=== PATIENT | female | born 1940 | race Caucasian/White ===

== ENCOUNTER 2020-12-25 09:30 | Inpatient (IN) | payer OTHER ==
[~2020-12-25] VITALS: Ht 152.4 cm; Wt 49.9 kg
--- NOTE | 2020-12-25 09:42 | NUR ---
TO ER BED 4, [id number], PER EMS PT WAS DIFFICULT TO AROUSE THIS MORNING. 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
--- NOTE | 2020-12-25 10:03 | NUR ---
INSULATION WORKER AT BEDSIDE
--- NOTE | 2020-12-25 10:21 | NUR ---
TAKEN TO CT
[2020-12-25] MEDS ORDERED: NA P133E RC (10:25)
[2020-12-25] MEDS ORDERED: ASCO-352 PO (10:25)
[2020-12-25] MEDS ORDERED: ASPI-1420 PO (10:25)
[2020-12-25] MEDS ORDERED: MEMA10TA PO (10:25)
[2020-12-25] MEDS ORDERED: MULT-447 PO (10:25)
[2020-12-25] MEDS ORDERED: BISA10SU11 RC (10:25)
[2020-12-25] MEDS ORDERED: ACET-2605 PO (10:25)
[2020-12-25] MEDS ORDERED: ATOR10TA PO (10:25)
[2020-12-25] MEDS ORDERED: MAGN400O6 PO (10:25)
[2020-12-25] MEDS ORDERED: SENN-261 PO (10:25)
[2020-12-25] MEDS ORDERED: FLUO10CA29 PO (10:25)
[2020-12-25] MEDS ORDERED: BLOO-668 IN (10:25)
[2020-12-25] MEDS ORDERED: PANT40TA2 PO (10:25)
[2020-12-25] MEDS ORDERED: FERR325T23 PO (10:25)
[2020-12-25] MEDS ORDERED: ZINC220C6 PO (10:25)
[2020-12-25] MEDS ORDERED: ACET-868 PO (10:25)
[2020-12-25 10:52] LABS: BASOPHILS # (AUTO) 0.1 K/uL (0.0-0.2); BASOPHILS % (AUTO) 0.4 % (0.0-2.0); EOSINOPHILS % (AUTO) 2.5 % (0.0-6.0); HEMATOCRIT 27 % (33-45); HEMOGLOBIN 8.9 g/dL (11.5-14.8); LYMPHOCYTES # (AUTO) 2.6 K/uL (0.8-4.8); LYMPHOCYTES % (AUTO) 15.3 % (20.0-44.0); MEAN CORPUSCULAR HGB CONC 33 g/dl (31.0-36.0); MEAN CORPUSCULAR VOLUME 90 fL (82-100); MONOCYTES # (AUTO) 1.5 K/uL (0.1-1.30); MONOCYTES % (AUTO) 8.7 % (2.0-12.0); NEUTROPHILS # (AUTO) 12.6 K/uL (1.8-8.9); NEUTROPHILS % (AUTO) 73.1 % (43.0-81.0); PLATELET COUNT (AUTO) 546 K/uL (150-450); RED BLOOD CELL COUNT(AUTO) 3.01 MIL/uL (4.0-5.2); WHITE BLOOD COUNT (AUTO) 17.2 K/uL (4.3-11.0)
[2020-12-25 11:06] LABS: CALCIUM, SERUM 8.1 mg/dL (8.5-10.1); CARBON DIOXIDE 32 mmol/L (21-32); CHLORIDE 106 mmol/L (98-107); CREATININE 0.8 mg/dL (0.6-1.3); GLUCOSE 72 mg/dL (74-106); POTASSIUM 3.9 mmol/L (3.5-5.1); SODIUM SERUM 142 mmol/L (136-145); UREA NITROGEN, BLOOD 13 mg/dL (7-18)
[2020-12-25 11:11] LABS: ALANINE AMINOTRANSFERASE 67 U/L (12-78); ALBUMIN 1.9 g/dL (3.4-5.0); ALCOHOL, BLOOD < 3 mg/dL (0-0); ALKALINE PHOSPHATASE 145 U/L (46-116); ASPARTATE AMINOTRANSFERASE 50 U/L (15-37); BILIRUBIN,DIRECT 0.3 mg/dL (0.0-0.2); BILIRUBIN,TOTAL 0.7 mg/dL (0.2-1.0); TOTAL PROTEIN, SERUM 5.9 g/dL (6.4-8.2)
[2020-12-25] MEDS ORDERED: PIPERACILLIN /TAZOBACTAM 3.375 G in IV D5W 50 ML IV ONE (11:30)
[2020-12-25] MEDS ORDERED: VANCOMYCIN 1 GM in IV D5W 250 ML IV ONE (11:30)
[2020-12-25 11:33] LABS: BILIRUBIN,URINE Negative (NEGATIVE); COLOR,URINE YELLOW (YELLOW); LEUKOCYTE ESTERASE ,URINE Negative (NEGATIVE); NITRITE, URINE Negative (NEGATIVE); PROTEIN,URINE Negative (NEGATIVE); UGLUCOSE Negative (NEGATIVE); UROBILINOGEN,URINE 0.2 EU/dL (0.2)
[2020-12-25 11:33] LABS: ACETAMINOPHEN < 2 ug/ml (10-30)
[2020-12-25 11:44] LABS: BACTERIA,URINE None seen /HPF (None Seen); SQUAMOUS EPITHELIAL CELL,UR Rare /HPF (None Seen); WBC,URINE NONE SEEN /HPF (0-3)
--- NOTE | 2020-12-25 11:52 | NUR ---
CHEYANNE ZHANG CM
--- NOTE | 2020-12-25 12:04 | NUR ---
COVID SWAB DONE AND SENT TO LAB
--- NOTE | 2020-12-25 12:15 | NUR ---
RECEIVED A CALL FROM CHEYANNE FROM [facility]. WANTING CLINICAL INFORMATION, WILL HAVE THE CALL BACK FOR PEER TO PEER.
[2020-12-25 12:59] LABS: SERUM AMMONIA 18 umol/L (11-32)
[2020-12-25 13:11] LABS: THYROID STIMULATING HORMONE 3.351 uIU/mL (0.358-3.74)
--- NOTE | 2020-12-25 13:25 | NUR ---
CALLED TO FOLLOW UP WITH CHEYANNE TRAN FOR [facility]. THERE IS A CONFUSION WITH THEIR HOSPITALIST GROUP OF ADMISSION. NO DOCTOR ABLE TO ACCOMODATE AT THIS TIME. CHEYANNE STATED "IF YOU HAVE TO ADMIT DUE TO TIME, THERE IS NOTHING WE CAN DO". INITIAL CONTACT TIME WITH [facility] WAS 1149.
--- NOTE | 2020-12-25 13:28 | NUR ---
CALLED NURSING SUP FOR TELE BED.
--- NOTE | 2020-12-25 14:30 | NUR ---
dr. pelayo spoke to dr. mtz and gave auth for patient to stay
--- NOTE | 2020-12-25 15:09 | NUR ---
CHEYANNE TRAN MADE AWARE AND GAVE VERBAL AUTH FOR PATIENT TO STAY
--- NOTE | 2020-12-25 17:17 | NUR ---
TAKEN TO CT
[2020-12-25] MEDS ORDERED: MAGNESIUM HYDROXIDE 30 ML UDC PO PRN (17:30)
[2020-12-25] MEDS ORDERED: OLANZAPINE 10 MG VIAL IM PRN (17:30)
[2020-12-25] MEDS ORDERED: ACETAMINOPHEN 325 MG TABLET PO PRN (17:30)
[2020-12-25] MEDS ORDERED: DEXTROSE 50%-WATER 50 ML DISP.SYRIN IV PRN (17:30)
[2020-12-25] MEDS ORDERED: NA PHOS,M-B/NA PHOS,DI-BA 1 EA ENEMA RC PRN (17:30)
[2020-12-25] MEDS: BLOOD SUGAR DIAGNOSTIC 1 EACH STRIP VI SCH ×2 (17:30→22:00)
[2020-12-25] MEDS ORDERED: BISACODYL SUPP (10 MG) 10 MG/SUPP.RECT SUPP.RECT RC PRN (17:30)
--- NOTE | 2020-12-25 17:50 | NUR ---
NURSING SUP GAVE TELE BED 116-2.
--- NOTE | 2020-12-25 19:05 | NUR ---
RN NOTES RECEIVED PT FROM ER VIA [facility] ACCOMPANIED BY 2 ER STAFF AND TRANSFERRED TO BED VIA 2 PERSON ASSIST. PT IS A/OX1; ON ROOM AIR WITH RESPIRATIONS EVEN AND UNLABORED. COMPREHENSIVE PHYSICAL ASSESSMENT AND PATIENT CARE DONE. CALL LIGHT WITHIN REACH, SAFETY MEASURES AND ISOLATION PRECAUTION IN PLACE, WILL CONTINUE MONITOR AND ASSESS THROUGHOUT THE SHIFT. WILL CARRY OUT MD ORDERS ACCORDINGLY. TENNIS BALL COVERER HAND MADE AWARE.
[2020-12-25] MEDS: PIPERACILLIN /TAZOBACTAM 3.375 G in IV D5W 50 ML IV SCH ×2 (19:34→23:39)
[2020-12-25] MEDS: INSULIN REGULAR, HUMAN 100 UNIT/ML 3 ML VIAL SQ PRN (19:41)
--- NOTE | 2020-12-25 19:41 | NUR ---
RN NOTES ACCU CHECK DONE 204; DELAYED FROM SCHEDULE (1730) PT JUST GOT ADMITTED TO [facility]; PT REFUSED INSULIN AT THIS TIME. ANOTHER SCHEUDLE ACCU CHECK BY 2200; WILL RECHECK SCHEDULED.MOBILE MARKETING SPECIALIST MADE AWARE.
[2020-12-25 20:00] VITALS: BP 124/56
[2020-12-25] MEDS: SOD FERRIC GLUC 125 MG in IV NS 0.9% 100 ML IV SCH (20:16)
[2020-12-25] MEDS: SENNOSIDES 8.6 MG TABLET PO SCH (22:00)
[2020-12-25] MEDS: ATORVASTATIN 10 MG TABLET PO SCH (22:00)
--- NOTE | 2020-12-25 22:16 | NUR ---
RN NOTES SCHEDULED MEDICATION : LIPITOR 10MG AND SENOKOT 8.6MG NOT GIVEN PT IS STILL ALTERED AND LETHARGIC. PRIVACY SPECIALIST AND DR JONES MADE AWARE. WILL CONTINUE TO MONITOR AND ASSESS THROUGHOUT THE SHIFT.
[2020-12-25] MEDS: *INSULIN REGULAR(HUMULIN R)HUM 100 UNIT/ML VIAL SQ PRN (23:38)
[2020-12-26] VITALS: BP 113/77
--- NOTE | 2020-12-26 | NUR ---
RN NOTES PATIENT REMAINED TO BE IN NO SIGNS OF ACUTE RESPIRATORY DISTRESS , VITAL SIGNS WNL AT THIS TIME. MACHINIST APPRENTICE MADE AWARE. WILL CONTINUE TO MONITOR AND REASSESS FOR ANY CHANGES THROUGHOUT THE SHIFT.
[2020-12-26 04:00] VITALS: BP 124/41
--- NOTE | 2020-12-26 04:00 | NUR ---
RN NOTES NO NOTED CHANGES IN PATIENT CONDITION AT THIS TIME; PATIENT VITALS STABLE, NO SIGNS OF ACUTE RESPIRATORY DISTRESS. AM PATIENT CARE RENDERED. SKOOG MACHINE OPERATOR MADE AWARE. WILL CONTINUE TO MONITOR AND REASSESS FOR ANY CHANGES THROUGHOUT THE SHIFT.
[2020-12-26] MEDS: PIPERACILLIN /TAZOBACTAM 3.375 G in IV D5W 50 ML IV SCH ×4 (05:03→23:54)
--- NOTE | 2020-12-26 06:35 | NUR ---
RN CLOSING NOTE: PATIENT REMAINS IN ROOM IN NO SIGNS OF RESPIRATORY DISTRESS, PATIENT STILL ON ROOM AIR;TOLERATING WELL SATURATING @ >95% SP02. SAFETY MEASURES IMPLEMENTED, BED IN LOWEST POSITION, LOCKED, SIDE RAILS UP, CALL LIGHT WITHIN REACH. ALL NEEDS AND ORDERS ADDRESSED DURING THE SHIFT. IV ACCESS MAINTAINED INTACT, SECURED AND FLUSHING WELL. ALL DUE MEDS GIVEN ORDERED & SCHEDULED ; PATIENT TOLERATED WELL. PATIENT KEPT CLEAN AND COMFORTABLE WITHIN THE SHIFT. PATIENT ENDORSED TO INCOMING SHIFT RN WITH STABLE VITAL SIGN AND FOR CONTINUITY OF CARE.
[2020-12-26 07:04] LABS: BASOPHILS # (AUTO) 0.1 K/uL (0.0-0.2); BASOPHILS % (AUTO) 0.6 % (0.0-2.0); EOSINOPHILS % (AUTO) 3.5 % (0.0-6.0); HEMATOCRIT 26 % (33-45); HEMOGLOBIN 8.7 g/dL (11.5-14.8); LYMPHOCYTES # (AUTO) 1.9 K/uL (0.8-4.8); MEAN CORPUSCULAR HGB CONC 34 g/dl (31.0-36.0); MEAN CORPUSCULAR VOLUME 90 fL (82-100); MONOCYTES # (AUTO) 1.1 K/uL (0.1-1.30); NEUTROPHILS # (AUTO) 10.2 K/uL (1.8-8.9); NEUTROPHILS % (AUTO) 73.9 % (43.0-81.0); PLATELET COUNT (AUTO) 594 K/uL (150-450); RED BLOOD CELL COUNT(AUTO) 2.88 MIL/uL (4.0-5.2); WHITE BLOOD COUNT (AUTO) 13.8 K/uL (4.3-11.0)
[2020-12-26 07:20] LABS: CALCIUM, SERUM 7.8 mg/dL (8.5-10.1); CREATININE 0.8 mg/dL (0.6-1.3); POTASSIUM 3.8 mmol/L (3.5-5.1)
--- NOTE | 2020-12-26 07:55 | NUR ---
TELE/RN OPENING NOTE: RECEIVED PT IN BED. PATIENT STILL ON ROOM AIR;TOLERATING WELL SATURATING @ >95% SP02. SAFETY MEASURES IMPLEMENTED, BED IN LOWEST POSITION, LOCKED, SIDE RAILS UP, CALL LIGHT WITHIN REACH. ALL NEEDS AND ORDERS ADDRESSED DURING THE SHIFT. IV ACCESS MAINTAINED INTACT, SECURED AND FLUSHING WELL. ALL DUE MEDS GIVEN ORDERED & SCHEDULED ; PATIENT TOLERATED WELL. PATIENT KEPT CLEAN AND COMFORTABLE WITHIN THE SHIFT. WILL CONTINUE TO MONITOR
[2020-12-26] MEDS: PANTOPRAZOLE 40 MG TABLET.DR PO SCH (08:20)
[2020-12-26] MEDS: BLOOD SUGAR DIAGNOSTIC 1 EACH STRIP VI SCH ×4 (08:21→22:00)
[2020-12-26] MEDS ORDERED: INSULIN GLARGINE, 100 UNIT/ML CARTRIDGE SQ SCH (09:00)
[2020-12-26] MEDS: Fluoxetine 10 mg capsule PO SCH (09:54)
[2020-12-26] MEDS: MEMANTINE HCL 5 MG TABLET PO SCH ×2 (09:54→18:08)
[2020-12-26] MEDS: MULTIVIT W/MINERALS 1 TAB TABLET PO SCH (09:54)
[2020-12-26] MEDS: ZINC SULFATE 220 MG CAPSULE PO SCH (09:54)
[2020-12-26] MEDS: ENOXAPARIN SODIUM 40 MG/0.4 ML DISP.SYRIN SQ SCH (09:59)
[2020-12-26] MEDS: INSULIN GLARGINE, 100 UNIT/ML CARTRIDGE SQ SCH ×2 (10:00→17:00)
[2020-12-26] MEDS: INSULIN REGULAR, HUMAN 100 UNIT/ML 3 ML VIAL SQ PRN (13:41)
[2020-12-26 14:36] VITALS: BP 116/67
[2020-12-26] MEDS: SOD FERRIC GLUC 125 MG in IV NS 0.9% 100 ML IV SCH (16:55)
[2020-12-26 17:07] VITALS: BP 111/57
--- NOTE | 2020-12-26 18:11 | NUR ---
TELE/RN NOTES- LANTUS LANTUS WITHHELD DUE TO LOW BLOOD SUGAR OF 87. MD AWARE. WILL MONITOR.
--- NOTE | 2020-12-26 19:27 | NUR ---
TELE/RN OPENING NOTE: RECEIVED PT IN BED. PATIENT STILL ON ROOM AIR;TOLERATING WELL SATURATING @ >95% SP02. SAFETY MEASURES IMPLEMENTED, BED IN LOWEST POSITION, LOCKED, SIDE RAILS UP, CALL LIGHT WITHIN REACH. ALL NEEDS AND ORDERS ADDRESSED DURING THE SHIFT. IV ACCESS MAINTAINED INTACT, SECURED AND FLUSHING WELL. ALL DUE MEDS GIVEN ORDERED & SCHEDULED ; PATIENT TOLERATED WELL. PATIENT KEPT CLEAN AND COMFORTABLE WITHIN THE SHIFT. WILL CONTINUE TO MONITOR Addendum: 12/26/20 at 1929 by KRISS HERNANDEZ RN ERROR
--- NOTE | 2020-12-26 19:29 | NUR ---
TELE/RN CLOSING NOTE: PT IN BED. PATIENT STILL ON ROOM AIR;TOLERATING WELL SATURATING @ >95% SP02. SAFETY MEASURES IMPLEMENTED, BED IN LOWEST POSITION, LOCKED, SIDE RAILS UP, CALL LIGHT WITHIN REACH. ALL NEEDS AND ORDERS ADDRESSED DURING THE SHIFT. IV ACCESS MAINTAINED INTACT, SECURED AND FLUSHING WELL. ALL DUE MEDS GIVEN ORDERED & SCHEDULED ; PATIENT TOLERATED WELL. PATIENT KEPT CLEAN AND COMFORTABLE WITHIN THE SHIFT. WILL ENDORSE TO THE NEXT SHIFT FOR HERMAN.
[2020-12-26 20:00] VITALS: BP 123/48
--- NOTE | 2020-12-26 21:26 | NUR ---
RN NOTES REPORT GIVEN TO JUAN ANTONIO ORTEGA FOR [facility]MAN. JANITOR CARETAKER MADE AWARE.
[2020-12-26 22:00] VITALS: BP 123/48
[2020-12-26] MEDS: ATORVASTATIN 10 MG TABLET PO SCH (23:53)
[2020-12-26] MEDS: SENNOSIDES 8.6 MG TABLET PO SCH (23:53)
[2020-12-27] VITALS: BP 148/56
[2020-12-27] MEDS: *INSULIN REGULAR(HUMULIN R)HUM 100 UNIT/ML VIAL SQ PRN ×2 (00:09→22:18)
[2020-12-27 04:00] VITALS: BP 146/62
[2020-12-27] MEDS: PIPERACILLIN /TAZOBACTAM 3.375 G in IV D5W 50 ML IV SCH ×4 (05:17→23:18)
[2020-12-27 06:34] LABS: CALCIUM, SERUM 7.9 mg/dL (8.5-10.1); CREATININE 0.8 mg/dL (0.6-1.3); POTASSIUM 3.4 mmol/L (3.5-5.1)
[2020-12-27 07:00] LABS: BASOPHILS # (AUTO) 0.1 K/uL (0.0-0.2); BASOPHILS % (AUTO) 0.6 % (0.0-2.0); EOSINOPHILS % (AUTO) 1.9 % (0.0-6.0); HEMATOCRIT 29 % (33-45); HEMOGLOBIN 9.6 g/dL (11.5-14.8); LYMPHOCYTES # (AUTO) 1.8 K/uL (0.8-4.8); LYMPHOCYTES % (AUTO) 10.6 % (20.0-44.0); MEAN CORPUSCULAR HGB CONC 33 g/dl (31.0-36.0); MEAN CORPUSCULAR VOLUME 91 fL (82-100); MONOCYTES # (AUTO) 1.1 K/uL (0.1-1.30); MONOCYTES % (AUTO) 6.5 % (2.0-12.0); NEUTROPHILS # (AUTO) 13.6 K/uL (1.8-8.9); NEUTROPHILS % (AUTO) 80.4 % (43.0-81.0); PLATELET COUNT (AUTO) 735 K/uL (150-450); RED BLOOD CELL COUNT(AUTO) 3.21 MIL/uL (4.0-5.2); WHITE BLOOD COUNT (AUTO) 16.9 K/uL (4.3-11.0)
[2020-12-27] MEDS: BLOOD SUGAR DIAGNOSTIC 1 EACH STRIP VI SCH ×4 (07:50→22:14)
[2020-12-27] MEDS: PANTOPRAZOLE 40 MG TABLET.DR PO SCH (07:50)
[2020-12-27] MEDS: INSULIN REGULAR, HUMAN 100 UNIT/ML 3 ML VIAL SQ PRN ×3 (07:52→16:43)
[2020-12-27 08:00] VITALS: BP 120/53
[2020-12-27] MEDS: MEMANTINE HCL 5 MG TABLET PO SCH ×2 (09:20→16:40)
[2020-12-27] MEDS: Fluoxetine 10 mg capsule PO SCH (09:20)
[2020-12-27] MEDS: MULTIVIT W/MINERALS 1 TAB TABLET PO SCH (09:20)
[2020-12-27] MEDS: ZINC SULFATE 220 MG CAPSULE PO SCH (09:20)
[2020-12-27] MEDS: ENOXAPARIN SODIUM 40 MG/0.4 ML DISP.SYRIN SQ SCH (09:21)
[2020-12-27] MEDS: INSULIN GLARGINE, 100 UNIT/ML CARTRIDGE SQ SCH ×2 (09:28→16:42)
[2020-12-27] MEDS ORDERED: POTASSIUM CHLORIDE 20 MEQ TAB.PRT.SR PO SCH (09:30)
[2020-12-27 12:00] VITALS: BP 124/53
[2020-12-27] MEDS: SOD FERRIC GLUC 125 MG in IV NS 0.9% 100 ML IV SCH (14:56)
[2020-12-27 16:00] VITALS: BP 96/56
[2020-12-27] MEDS: APIXABAN 5 MG TABLET PO SCH (16:41)
--- NOTE | 2020-12-27 18:28 | NUR ---
END OF SHIFT SUMMARY PATIENT IS A/O X1. ON ROOM AIR, IN NO APPARENT DISTRESS. IN NO APPARENT DISTRESS. DENIES ANY PAIN AND DISCOMFORT. IV ACCESS ON L AC #20 G, INTACT AND PATENT. NO SIGNS OF INFILTRATION. DUE MEDS GIVEN ORDERED. HALL CATH IN PLACE, DRAINING YELLOW URINE, 800 CC OUTPUT. BOTH HANDS ON MITTENS, ASSESSED PER PROTOCOL. SAFETY MEASURES MAINTAINED. BED IN LOWEST POSITION, BRAKES LOCKED. SIDE RAILS UP X2. KEPT CALL LIGHT WITHIN REACH. WILL ENDORSE CONTINUITY OF CARE TO ONCOMING SHIFT.
--- NOTE | 2020-12-27 19:00 | NUR ---
RN NOTE RECEIVED PATIENT IN BED RESTING ALERT ORIENTED X1 VERBALLY RESPONSIVE ON ROOM AIR O2:99% IV SITE IS ON LEFT WRIST INTACT PATENT,HALL CATHETER IN PLACE URINE DRAINING YELLOW AND CLEAR BY GRAVITY, SAFETY MEASURE IMPLEMENT BED IN LOW POSITON AND LOCKED BED ALARM IS ON,CONTINUE TO MONITOR.
[2020-12-27 20:00] VITALS: BP 131/60
[2020-12-27] MEDS: SENNOSIDES 8.6 MG TABLET PO SCH (22:14)
[2020-12-27] MEDS: ATORVASTATIN 10 MG TABLET PO SCH (22:14)
[2020-12-28 04:00] VITALS: BP 108/61
[2020-12-28] MEDS: PIPERACILLIN /TAZOBACTAM 3.375 G in IV D5W 50 ML IV SCH ×2 (05:11→11:49)
--- NOTE | 2020-12-28 06:43 | NUR ---
RN NOTE PATIENT REMAINS ON ALERT ORIENTED X1,CONFUSED VERBALLY RESPONSIVE NO SOB NOT ACUTE DISTRESS NOTED,SHE IS ON ROOM AIR O2:99% ALL DUE MEDS GIVEN MD ORDERED KEPT CLEAN AND DRY ALL THE TIME,ALL NEEDS MET ENDORSE NEXT COMING SHIFT FOR CONTINUATION OF CARE.
[2020-12-28 07:05] LABS: CALCIUM, SERUM 8.3 mg/dL (8.5-10.1); CREATININE 0.9 mg/dL (0.6-1.3); POTASSIUM 3.9 mmol/L (3.5-5.1)
--- NOTE | 2020-12-28 07:42 | NUR ---
MS RN OPENING NOTE PT IS AWAKE IN BED. A/O X 1 CONFUSED. PT TOLERATING WELL ON ROOM AIR. NO SOB. BREATHING IS EVEN AND UNLABORED. NO RESPIRATORY DISTRESS NOTED. IV ACCESS LAC SL PATENT AND INTACT. SAFETY MEASURES IN PLACE WITH BED LOCKED AT LOW POSITION AND SIDE RAILS UP X 2. WILL MONITOR PATIENT THROUGHOUT SHIFT.
[2020-12-28] MEDS: BLOOD SUGAR DIAGNOSTIC 1 EACH STRIP VI SCH ×2 (08:16→11:31)
[2020-12-28] MEDS: MULTIVIT W/MINERALS 1 TAB TABLET PO SCH (08:17)
[2020-12-28] MEDS: PANTOPRAZOLE 40 MG TABLET.DR PO SCH (08:17)
[2020-12-28] MEDS: Fluoxetine 10 mg capsule PO SCH (08:17)
[2020-12-28] MEDS: ZINC SULFATE 220 MG CAPSULE PO SCH (08:17)
[2020-12-28] MEDS: MEMANTINE HCL 5 MG TABLET PO SCH (08:17)
[2020-12-28] MEDS: APIXABAN 5 MG TABLET PO SCH (08:18)
[2020-12-28] MEDS: *INSULIN REGULAR(HUMULIN R)HUM 100 UNIT/ML VIAL SQ PRN (08:19)
[2020-12-28] MEDS: INSULIN GLARGINE, 100 UNIT/ML CARTRIDGE SQ SCH (08:23)
[2020-12-28] MEDS ORDERED: Insulin Glargine,Hum SQ (09:12)
[2020-12-28] MEDS ORDERED: APIX5TAB PO (09:12)
[2020-12-28] MEDS ORDERED: Multivit W/Minerals PO (09:12)
[2020-12-28] MEDS ORDERED: INSU100V28 SQ (09:12)
[2020-12-28] MEDS ORDERED: *INS REG SQ (09:12)
[2020-12-28] MEDS ORDERED: ATOR10TA PO (09:12)
[2020-12-28] MEDS ORDERED: FLUO10CA29 PO (09:12)
[2020-12-28] MEDS ORDERED: MEMA5TAB PO (09:12)
[2020-12-28] MEDS: INSULIN REGULAR, HUMAN 100 UNIT/ML 3 ML VIAL SQ PRN (11:49)
[2020-12-28 12:00] VITALS: BP 108/61
--- NOTE | 2020-12-28 12:40 | NUR ---
obtained discharge order via phone from DR. Magallon covering for Dr. JONES PT. OK FOR DISCHARGE TODAY AND MEDS PER [facility],OK TO DISCOBTINUE ANTIBIOTICS UPON DISCHARGE,CASE MANAGEMENT MADE AWARE.
--- NOTE | 2020-12-28 14:20 | NUR ---
MS RN NOTE REPORT GIVEN TO JUAN ANTONIO MO AT [facility]. INFORMED SON, ALIYAH.
[2020-12-28] MEDS: SOD FERRIC GLUC 125 MG in IV NS 0.9% 100 ML IV SCH (14:28)
--- NOTE | 2020-12-28 15:19 | NUR ---
GLOBAL IMPLEMENTATION MANAGER NOTE PATIENT WAS DISCHARGED WITH STABLE VITALS. DISCHARGE SUMMARY REVIEWED WITH JUAN ANTONIO MO AT [facility] PATIENT IS UNABLE TO SIGN. IV ACCESS AND ID BAND REMOVED. ALL BELONGINGS RETURNED TO PATIENT. PATIENT WAS ESCORTED OUT OF UNIT BY [facility].
[2021-01-03] MEDS ORDERED: APIXABAN 5 MG TABLET PO SCH (17:00)
== END 2020-12-28 15:17 | DRG 177 ==
LOC: EDBD 09:36 → ER 09:36 → TELE1 18:21 → MEDSG1 12-26 11:27
PROVIDERS: ADMIT Internal Medicine; ATTEND Internal Medicine
DX: J69.0 Pneumonitis due to inhalation of food and vomit (principal); G93.41 Metabolic encephalopathy; I82.401 Acute embolism and thrombosis of unspecified deep veins of right lower extremity; E11.9 Type 2 diabetes mellitus without complications; F03.90 Unspecified dementia, unspecified severity, without behavioral disturbance, psychotic disturbance, mood disturbance, and anxiety; I10 Essential (primary) hypertension; Z20.822 Contact with and (suspected) exposure to COVID-19; F32.9 Major depressive disorder, single episode, unspecified; K21.9 Gastro-esophageal reflux disease without esophagitis; Z79.82 Long term (current) use of aspirin; Z79.899 Other long term (current) drug therapy; Z96.641 Presence of right artificial hip joint; D64.9 Anemia, unspecified; E78.5 Hyperlipidemia, unspecified; I67.2 Cerebral atherosclerosis; M77.9 Enthesopathy, unspecified
CPT/HCPCS: 36415; 70450-TC; 71045-TC; 71250-TC; 72125-TC; 80048-TC; 80076-TC; 81001; 82140-TC; 82962-TC; 84443-TC; 84484-TC; 85025-TC; 85730-TC; 87081-TC; 92521; 92526; 93971-TC; C9803; G0378; G0480; J1650; J1815; J2543; J2916; J3370; J3490; J7030; J7050; J7060; U0003